=== PATIENT | female | born 1995 | race Caucasian/White ===

== ENCOUNTER 2019-05-26 08:11 | Day surgery (SDC) | payer OTHER ==
[2019-05-26] MEDS ORDERED: MIDAZOLAM 2 MG/2 ML VIAL IVP ONE (08:12)
[2019-05-26] MEDS ORDERED: fentaNYL 250 MCG/5 ML VIAL IVP ONE (08:12)
[2019-05-26 08:35] LABS: HCG UR QUAL NEGATIVE
[2019-05-26] MEDS ORDERED: LACTATED RINGERS 1,000 ML IV ONE (08:38)
[2019-05-26 09:56] VITALS: BP 97/80
== END 2019-05-26 08:12 | disposition home or self-care (01) ==
LOC: SDS 08:11
PROVIDERS: ATTEND Internal Medicine
PROC: 0DJD8ZZ Inspection of Lower Intestinal Tract, Via Natural or Artificial Opening Endoscopic (ICD-10-PCS; principal; 2019-05-26 09:30)
DX: Z12.11 Encounter for screening for malignant neoplasm of colon (principal); Z80.0 Family history of malignant neoplasm of digestive organs; K64.8 Other hemorrhoids
CPT/HCPCS: 45378; 81025; J3010; J7120

== ENCOUNTER 2020-02-28 10:52 | Outpatient (CLI) | payer OTHER ==
--- NOTE | 2020-02-28 11:56 | SLEEP CARE CONSULTATION ---
Information from patient questionnaire entered by Samaria Sweet. I have reviewed and concur with the information entered by Samaria Sweet. This document represents the service I personally performed and the decisions made by me, Dolores Cummins MD, [facility]. History of Present Illness Service Date and Time: 02/28/2020 1052 Reason for Visit: New patient Chief Complaint: reports: Insomnia, Excessive daytime sleepiness, Observed pauses in breathing, Frequent awakenings at night Usual bedtime: 9-10 PM Time it takes to fall asleep: 1-2 hours Snores at night: Yes Observed to quit breathing while asleep: Yes Sleeps alone due to snoring: No Number of times waking at night: 2 or more Reasons for waking at night: reports: Choking, Gasping for air Toss, Turn, or Twitch while sleeping: Yes Recalls having dreams: Yes Usually gets out of bed at: 5 am (weekdays) 7 am (weekends) Feels refreshed in the morning: No Morning headache: Yes Sleepy or fatigued during the day: Yes Ever fallen asleep while driving: Yes Takes day naps: No Dreams during day naps: Yes Prior sleep studies: Yes Year and Where: 2007 - [place], [place] Additional HPI information: The patient is here mainly because her says she struggle to breathe and quit breathing at night. She snores lightly. She complains of sleep onset insomnia of about 1 hour and waking up twice a night. Her bedtime is 9 pm and wakeup time is 5 am on weekdays, but 8 am on weekends. She reports having nightmares frequently. She feels tired and sleepy during the day. She has morning headaches that go away quickly. Her father has ADARSH and uses a CPAP. - Parasomnia Symptoms Ever been unable to move upon waking from sleep: Yes Ever felt weak in the knees when startled or emotional: Yes Bothered by creepy, crawly, restless sensations in legs: No Problems with memory or concentration: Yes Subjective Initial [place] Sleepiness Scale score: 18 (in 2019) Past Medical History Past Medical History: reports: Claustrophobia, Other (IBS, acne) Social History The patient's occupation is a Active . Patient is and lives in [place]. Have you smoked in the past 12 months: No Alcohol use: Yes Alcohol amount and frequency: 1-2 once a month or less Caffeine use: Yes Caffeine amount and frequency: 1 cup of coffee every morning Family History Family history of sleep disordered breathing: Yes Family Hx Sleep Apnea: Father: Snoring Allergies and Home Medications Drug allergies reviewed: Yes Home medication list reviewed: Yes Review of Systems Weight gain over past 5 years: 10 Cardiovascular: denies: high blood pressure, palpitations, chest pain, irregular heart rate or pulse, leg or foot swelling, have to sleep sitting up, other Respiratory: denies: shortness of breath, wheeze, sputum production, chronic cough, other Gastrointestinal: reports: nausea, diarrhea, abdominal pain, other (IBS) Urinary: reports: frequency Neurological: reports: headaches, head trauma, speech dysfunction Psychiatric: reports: claustrophobia Ear/Nose/Throat: reports: nasal congestion Endocrine: reports: too hot or cold Musculoskeletal: reports: muscle pain or cramping Immunologic: reports: sneezing, allergies to food or environment, other (mild seasonal allergies) Physical Exam Vital signs obtained and entered by: Deferred due to COVID-19 Height: 5 ft 2 in Weight: 137 lb Body Mass Index: 25.0 BMI Classification: Overweight Impression and Plan IMPRESSION: 1. Obstructive Sleep Apnea-Hypopnea Syndrome, as suggested by history of snoring, observed cessation of breath while asleep, frequent awakenings during the night, unrefreshed sleep, morning headache, and daytime hypersomnolence. Pathophysiology of sleep-disordered breathing was discussed. I recommend proceeding to polysomnography to confirm the diagnosis and to assess severity. If she has significant sleep disordered breathing, a manual CPAP titration study will also be performed to find the optimal treatment pressure. I informed the patient of what the sleep studies involve and after some discussion, she agreed to proceed. 2. Insomnia, due to delayed sleep phase syndrome. Based on her wakeup time of 8 am on the weekends, her bedtime is not until midnight. Therefore, going to bed at [address] too early. The solution is to maintain consistent wakeup time. This means she should not get up any later than 6 am on the weekends. Plan: 1. Schedule an in-laboratory polysomnography. 2. Maintain a regular wake up time and spend no more than 8 hours in bed at night. Avoid naps. 3. Avoid alcohol, sedative and muscle relaxant around bedtime. 4. Return in 1 to 2 weeks after the study to discuss results and initiate therapy Visit Type: In Office Time Spent with Patient (minutes): 15 Provider Statement: I spent 100% of the Face to Face Visit with the patient with greater than 50% spent counseling the patient and coordination of care.
== END 2020-02-28 10:53 | disposition home or self-care (01) ==
LOC: SC 10:52
PROVIDERS: ATTEND Internal Medicine Pulmonary Disease
DX: R06.83 Snoring (principal); R06.81 Apnea, not elsewhere classified; G47.8 Other sleep disorders; R51 Headache; R53.83 Other fatigue; G47.00 Insomnia, unspecified; G47.50 Parasomnia, unspecified; E66.3 Overweight; Z68.25 Body mass index [BMI] 25.0-25.9, adult
CPT/HCPCS: 99203; 99212

== ENCOUNTER 2020-03-15 19:35 | Outpatient (CLI) | payer OTHER | END 2020-03-15 19:36 | disposition home or self-care (01) | LOC: SC 19:35 | PROVIDERS: ATTEND Internal Medicine Pulmonary Disease | DX: R06.83 Snoring (principal); R06.81 Apnea, not elsewhere classified; G47.10 Hypersomnia, unspecified; R53.83 Other fatigue; G47.8 Other sleep disorders; G47.00 Insomnia, unspecified; R51 Headache; G47.50 Parasomnia, unspecified | CPT/HCPCS: 95810 ==

== ENCOUNTER 2021-08-10 12:01 | Emergency (ER) | payer OTHER ==
[2021-08-10 12:37] LABS: BILIRUBIN,URINE NEGATIVE (NEGATIVE); GLUCOSE, URINE (UA) NEGATIVE (NEGATIVE); KETONES,URINE (UA) NEGATIVE (NEGATIVE); LEUKOCYTE ESTERASE, URINE NEGATIVE (NEGATIVE); NITRITE,URINE NEGATIVE (NEGATIVE); OCCULT BLOOD,URINE LARGE (NEGATIVE); PH,URINE 6.5 PH (5.0-7.5); PROTEIN,URINE 30 mg/dL (NEGATIVE); UROBILINOGEN,URINE 0.2 (NORMAL) E.U./dL (NORMAL)
--- NOTE | 2021-08-10 12:40 | ED Physician Documentation ---
History of Present Illness - Stated complaint Stated Complaint: BLEEDING +PREG - Chief complaint Chief Complaint: Abd Pain - Additonal information Additional information: 25-year-old female presents the emergency department for evaluation of first trimester vaginal bleeding. LMP 06/23/2021. Pt had her first positive home test 07/27/2021 Patient reports that about 2 hours prior to arrival she began having vaginal bleeding that was more menstrual-like than spotting. Denies lateralizing or focal pain. No fevers or urinary symptoms. Does have past medical history of PCOS. She was advised to remove her Nexplanon implant about 1 year ago. This is a desired . Review of Systems Constitutional: denies: Fever, Chills Eyes: reports: Reviewed and negative Nose: reports: Reviewed and negative Throat: reports: Reviewed and negative Cardiac: reports: Reviewed and negative Respiratory: reports: Reviewed and negative GI: reports: Reviewed and negative : reports: LMP (06/23/2021), Vaginal bleeding, Now EGA Musculoskeletal: reports: Reviewed and negative PD PAST MEDICAL HISTORY - Past Medical History Cardiovascular: None Respiratory: None Endocrine/Autoimmune: None GI: None, Other : Kidney stones HEENT: None Psych: None Musculoskeletal: None Derm: None - Present Medications Home Medications: Ambulatory Orders Medication Instructions Recorded Confirmed Pnv No.95/Ferrous Fum/Folic AC 1 tab PO DAILY 08/10/21 08/10/21 [ Tablet] - Allergies Allergies/Adverse Reactions: Allergies Allergy/AdvReac Type Severity Reaction Status Date / Time diphenhydramine Allergy Severe Anaphylaxis Verified 08/10/21 12:08 [From Benadryl] PD ED PE NORMAL - General General: Alert and oriented X 3, No acute distress - HEENT HEENT: PERRL - Neck Neck: Supple, no meningeal sign - Cardiac Cardiac: RRR, No murmur - Respiratory Respiratory: Clear bilaterally - Abdomen Abdomen: Normal bowel sounds, Soft, Non tender, Non distended - Back Back: No CVA TTP, No spinal TTP - Derm Derm: Normal color, Warm and dry, No rash - Extremities Extremities: No deformity - Neuro Neuro: Alert and oriented X 3 Eye Opening: Spontaneous Motor: Obeys Commands Verbal: Oriented GCS Score: 15 Results - Vitals Vitals: Vital Signs - 24 hr 08/10/21 08/10/21 12:05 14:35 Temperature 36.7 C Heart Rate 102 H 81 Respiratory 16 16 Rate Blood Pressure 138/84 H 131/77 H O2 Saturation 100 100 Oxygen O2 Source Room air - Labs Labs: Laboratory Tests 08/10/21 08/10/21 08/10/21 12:12 13:04 13:04 WBC 5.8 RBC 4.44 Hgb 13.7 Hct 40.9 MCV 92.1 MCH 30.9 MCHC 33.5 RDW 11.4 L Plt Count 220 MPV 11.0 H Neut # (Auto) 4.1 Lymph # (Auto) 1.2 L [place] # (Auto) 0.4 Eos # (Auto) 0.1 Baso # (Auto) 0.0 Absolute Nucleated RBC 0.00 Nucleated RBC % 0.0 Sodium Potassium Chloride Carbon Dioxide Anion Gap BUN Creatinine Estimated GFR (MDRD) Glucose Calcium HCG, Quant Urine Color LT RED Urine Clarity BLOODY Urine pH 6.5 Ur Specific [place] <=1.005 Urine Protein 30 H Urine Glucose (UA) NEGATIVE Urine Ketones NEGATIVE Urine Occult Blood LARGE H Urine Nitrite NEGATIVE Urine Bilirubin NEGATIVE Urine Urobilinogen 0.2 (NORMAL) Ur Leukocyte Esterase NEGATIVE Urine RBC TNTC H Urine WBC 4-5 Ur Squamous Epith Cells FEW Squamous Urine Bacteria Rare Urine Casts 3-5 RBC Casts Ur Microscopic Review INDICATED Urine Culture Comments NOT INDICATED Blood Type O POSITIVE 08/10/21 08/10/21 13:04 13:04 WBC RBC Hgb Hct MCV MCH MCHC RDW Plt Count MPV Neut # (Auto) Lymph # (Auto) [place] # (Auto) Eos # (Auto) Baso # (Auto) Absolute Nucleated RBC Nucleated RBC % Sodium 140 Potassium 3.6 Chloride 105 Carbon Dioxide 25 Anion Gap 10.0 BUN 9 Creatinine 0.5 Estimated GFR (MDRD) 152 Glucose 88 Calcium 9.4 HCG, Quant 7.01 Urine Color Urine Clarity Urine pH Ur Specific [place] Urine Protein Urine Glucose (UA) Urine Ketones Urine Occult Blood Urine Nitrite Urine Bilirubin Urine Urobilinogen Ur Leukocyte Esterase Urine RBC Urine WBC Ur Squamous Epith Cells Urine Bacteria Urine Casts Ur Microscopic Review Urine Culture Comments Blood Type - Rads (name of study) OB Radiology: Final report received (no IUP; hypoechoic left adnexal lesion) PD MEDICAL DECISION MAKING - ED course Complexity details: reviewed results, re-evaluated patient, considered differential, d/w patient ED course: 25-year-old female G1, P0 presents the emergency department for vaginal bleeding that began this a.m. LMP 06/23/2021. She reports that she had a positive home test late last week as well as a positive test at the [facility]. When she began having vaginal bleeding she came to the ER. She is not having lower pelvic pain or any lateralizing pelvic pain. She does have a history of PCOS. Screening labs today show a normal hemoglobin without leukocytosis. She is Rh+. Her initial quant is 7.01. Given her last menstrual period in mid June I would expect a more robust quant. A pelvic ultrasound was completed and it does not show an IUP. However there is a complex hypoechoic mass measuring in greatest diameter of 2.8 cm on or about the left adnexa. I was notified by [facility] that they are concerned this could represent an ectopic . I then discussed the case with on-call OB Dr. Thompson. She feels it is extremely unlikely that this is an ectopic given such a low quant and no lower pelvic pain. She dutifully recommends the patient have a repeat hCG in 72 hours. Patient is to have explicit return precautions that include sudden severe lower pelvic pain, syncope racing heart or any other emergent concerns. I did discuss this case with the patient at length and she understands the emergent return precautions. She otherwise appears very well and is hemodynamically stable. Departure - Departure Disposition: 01 Home, Self Care Clinical Impression: Threatened miscarriage, Adnexal mass Condition: Stable Record reviewed to determine appropriate education?: Yes Comments: Mariaa silverman were seen in the emergency department today for vaginal bleeding in the first trimester of your . Your screening labs today show that your hCG, the hormone associated with is seven. The cutoff for normal is five. Although an hCG is seven does indicate that you are at this level it is very unlikely that we would ever see findings of an intrauterine . Nonetheless we did do a pelvic ultrasound to evaluate this possible . We did not find an intrauterine . We did find a hypoechoic complex appearing mass near your left adnexa. This may be a complex cyst associated with your history of PCOS. But because you are , we cannot definitively rule out an ectopic . This case was also discussed with our on-call OB Dr. Nadya Thompson It is critical that you return to this emergency department on Friday. At that time we will repeat your hormone levels. If they are rising we will need to do a repeat ultrasound to further evaluate the source of this mass. If at any point over the weekend you have sudden severe lower pelvic pain, fevers, racing heart or any fainting episodes then you are to return immediately to the ER for a second evaluation.
[2021-08-10 12:45] LABS: CLARITY,URINE BLOODY (CLEAR)
[2021-08-10 12:46] LABS: BACTERIA,URINE Rare /HPF (None Seen); CASTS, URINE 3-5 RBC Casts /LPF; RBC,URINE TNTC /HPF (0-5); SQUAMOUS EPITHELIAL CELL,UR FEW Squamous (<= Few)
[2021-08-10 13:16] LABS: BASOPHILS % (AUTO) 0.7 %; EOSINOPHILS # (AUTO) 0.1 10^3/uL (0.0-0.7); EOSINOPHILS % (AUTO) 1.4 %; HCT - HEMATOCRIT 40.9 % (37.0-47.0); HGB - HEMOGLOBIN 13.7 g/dL (12.0-16.0); LYMPHOCYTES # (AUTO) 1.2 10^3/uL (1.5-3.5); LYMPHOCYTES % (AUTO) 20.6 %; MEAN CORPUSCULAR HEMOGLOBIN 30.9 pg (27.0-31.0); MEAN CORPUSCULAR HGB CONC 33.5 g/dL (32.0-36.0); MEAN CORPUSCULAR VOLUME 92.1 fL (81.0-99.0); MONOCYTES # (AUTO) 0.4 10^3/uL (0.0-1.0); MONOCYTES % (AUTO) 6.1 %; NEUTROPHILS # (AUTO) 4.1 10^3/uL (1.5-6.6); PLT - PLATELET COUNT 220 10^3/uL (130-450); RED BLOOD COUNT 4.44 10^6/uL (4.20-5.40); RED CELL DISTRIBUTION WIDTH 11.4 % (12.0-15.0); WHITE BLOOD COUNT 5.8 x10^3/uL (4.8-10.8)
[2021-08-10 13:27] LABS: CALCIUM 9.4 mg/dL (8.5-10.3); CREATININE 0.5 mg/dL (0.4-1.0); POTASSIUM 3.6 mmol/L (3.5-5.0)
[2021-08-10 14:35] VITALS: BP 131/77
--- NOTE | 2021-08-10 15:19 | Ultrasound Report ---
PROCEDURE: OB First Trimester INDICATIONS: vaginal bleeding OUTSIDE/PRIOR DATING DATA: Last menstrual period (LMP): 06/23/2021. LMP-based estimated date of delivery (UNA): 03/30/2021. First dating scan (date and location): 08/10/2021. Estimated date of delivery (UNA) from first dating scan: Not applicable. TECHNIQUE: Real-time scanning was performed of the fetus and maternal pelvic organs, with image documentation. COMPARISON: None FINDINGS: There is a complex focus of echogenicity in the left adnexa measuring 2.8 x 2.1 x 2.3 cm. There is n o internal vascularity. It appears contiguous with the left ovary. No free fluid. Right ovary demonstrates a focus of heterogenous echogenicity measuring 1.1 x 0.8 x 1.0 cm. IMPRESSION: Heterogeneous echogenicity within the left adnexal region, in direct approximation to the left ovary highly suspicious for ectopic , until proven otherwise. No intrauterine . No free f luid in the pelvis. Recommend correlation to beta hCG levels and clinical and imaging follow-up. The above findings were discussed with DAVE Barreto on 08/10/2021 at 3:14 PM Reviewed by: Tiffany Chauhan MD on 08/10/2021 3:17 PM PST Approved by: Tiffany Chauhan MD on 08/10/2021 3:17 PM PST Station ID: [id number]
--- NOTE | 2021-08-10 19:30 | PROVIDER PROGRESS NOTE ---
Subjective - Prog Note Date Prog Note Date: 08/10/21 Prog Note Time: 15:00 - Subjective Subjective: I had received a request from DAVE Cochran, to review records for this patient. Patient is a 25 yo female who reports having had a positive urine test at the [facility] who presents today with vaginal bleeding with flow volume similar to menses. Denied pelvic pain. LMP was 06/23/21 giving an UNA of 03/30/22 and an ega of 6w6d. Quantitative HCG was 7mIU/ml, with the high end of normal range being 5mIU/ml. This is below the range that would be detected by a urine HCG test (typically 20 mIU/ml). Pelvic us was performed and showed a mass adjacent to the left ovary measuring approximately 2.8x2.1x2.3 cm. No internal vascularity and no free fluid in the pelvis. Recommendation was to clinically correlate with HCG. I reviewed the images directly myself. Typically, an HCG was 7 mIU/mL would not be visible via us. This is likely a failing chemical with presence of a corpus luteum cyst. A single HCG measure is difficult to interpret as trends would indicated a developing vs failing vs ectopic . However, an HCG of 7 mIU/ml could be considered normal among some women, particularly those with prior . A conservative/cautious approach would be to administer methotrexate as a precautionary measure but this is a highly desired and patient has no other symptoms other than menstrual-like vaginal bleeding. Presentation and HCG levels are most suggestive of onset of menses after failed chemical . (Prior positive UCG suggests corresponding HCG was 20 or greater and present level of 7 mIU/ml indicates a drop in HCG) To be conservative, I recommend repeat of HCG in 3 days. Patient can follow-up in clinic and warning signs should be reviewed. Objective - Vital Signs/Intake & Output Vital Signs: Vital Signs x48h Temp Pulse Resp BP Pulse Ox 08/10/21 14:35 81 16 131/77 H 100 08/10/21 12:05 98.1 F 102 H 16 138/84 H 100 - Lab Results Fish Bones: 08/10/21 13:04 08/10/21 13:04 Other Labs: Lab Results x24hrs 12/03/21 12/03/21 12/03/21 Range/Units 13:04 13:04 13:04 WBC 5.8 (4.8-10.8) x10^3/uL RBC 4.44 (4.20-5.40) 10^6/uL Hgb 13.7 (12.0-16.0) g/dL Hct 40.9 (37.0-47.0) % MCV 92.1 (81.0-99.0) fL MCH 30.9 (27.0-31.0) pg MCHC 33.5 (32.0-36.0) g/dL RDW 11.4 L (12.0-15.0) % Plt Count 220 (130-450) 10^3/uL MPV 11.0 H (7.9-10.8) fL Neut # (Auto) 4.1 (1.5-6.6) 10^3/uL Lymph # (Auto) 1.2 L (1.5-3.5) 10^3/uL [place] # (Auto) 0.4 (0.0-1.0) 10^3/uL Eos # (Auto) 0.1 (0.0-0.7) 10^3/uL Baso # (Auto) 0.0 (0.0-0.1) 10^3/uL Absolute Nucleated RBC 0.00 x10^3/uL Nucleated RBC % 0.0 /100WBC Sodium 140 (135-145) mmol/L Potassium 3.6 (3.5-5.0) mmol/L Chloride 105 (101-111) mmol/L Carbon Dioxide 25 (21-32) mmol/L Anion Gap 10.0 (6-13) BUN 9 (6-20) mg/dL Creatinine 0.5 (0.4-1.0) mg/dL Estimated GFR (MDRD) 152 (>89) Glucose 88 (70-100) mg/dL Calcium 9.4 (8.5-10.3) mg/dL HCG, Quant 7.01 mIU/mL Urine Color Urine Clarity (CLEAR) Urine pH (5.0-7.5) PH Ur Specific [place] (1.002-1.030) Urine Protein (NEGATIVE) mg/dL Urine Glucose (UA) (NEGATIVE) mg/dL Urine Ketones (NEGATIVE) mg/dL Urine Occult Blood (NEGATIVE) Urine Nitrite (NEGATIVE) Urine Bilirubin (NEGATIVE) Urine Urobilinogen (NORMAL) E.U./dL Ur Leukocyte Esterase (NEGATIVE) Urine RBC (0-5) /HPF Urine WBC (0-5) /HPF Ur Squamous Epith Cells (<= Few) Urine Bacteria (None Seen) /HPF Urine Casts /LPF Ur Microscopic Review Urine Culture Comments Blood Type 08/10/21 08/10/21 Range/Units 13:04 12:12 WBC (4.8-10.8) x10^3/uL RBC (4.20-5.40) 10^6/uL Hgb (12.0-16.0) g/dL Hct (37.0-47.0) % MCV (81.0-99.0) fL MCH (27.0-31.0) pg MCHC (32.0-36.0) g/dL RDW (12.0-15.0) % Plt Count (130-450) 10^3/uL MPV (7.9-10.8) fL Neut # (Auto) (1.5-6.6) 10^3/uL Lymph # (Auto) (1.5-3.5) 10^3/uL [place] # (Auto) (0.0-1.0) 10^3/uL Eos # (Auto) (0.0-0.7) 10^3/uL Baso # (Auto) (0.0-0.1) 10^3/uL Absolute Nucleated RBC x10^3/uL Nucleated RBC % /100WBC Sodium (135-145) mmol/L Potassium (3.5-5.0) mmol/L Chloride (101-111) mmol/L Carbon Dioxide (21-32) mmol/L Anion Gap (6-13) BUN (6-20) mg/dL Creatinine (0.4-1.0) mg/dL Estimated GFR (MDRD) (>89) Glucose (70-100) mg/dL Calcium (8.5-10.3) mg/dL HCG, Quant mIU/mL Urine Color LT RED Urine Clarity BLOODY (CLEAR) Urine pH 6.5 (5.0-7.5) PH Ur Specific [place] <=1.005 (1.002-1.030) Urine Protein 30 H (NEGATIVE) mg/dL Urine Glucose (UA) NEGATIVE (NEGATIVE) mg/dL Urine Ketones NEGATIVE (NEGATIVE) mg/dL Urine Occult Blood LARGE H (NEGATIVE) Urine Nitrite NEGATIVE (NEGATIVE) Urine Bilirubin NEGATIVE (NEGATIVE) Urine Urobilinogen 0.2 (NORMAL) (NORMAL) E.U./dL Ur Leukocyte Esterase NEGATIVE (NEGATIVE) Urine RBC TNTC H (0-5) /HPF Urine WBC 4-5 (0-5) /HPF Ur Squamous Epith Cells FEW Squamous (<= Few) Urine Bacteria Rare (None Seen) /HPF Urine Casts 3-5 RBC Casts /LPF Ur Microscopic Review INDICATED Urine Culture Comments NOT INDICATED Blood Type O POSITIVE
== END 2021-08-10 15:50 | disposition home or self-care (01) ==
LOC: ED 12:01
DX: O20.0 Threatened abortion (principal); Z3A.00 Weeks of gestation of pregnancy not specified; Z3A.01 Less than 8 weeks gestation of pregnancy
CPT/HCPCS: 36415; 80048; 81001; 81003; 84702; 85025; 86900; 86901; 87086; 99284

== ENCOUNTER 2021-08-13 11:09 | Emergency (ER) | payer OTHER ==
--- NOTE | 2021-08-13 11:45 | ED Physician Documentation ---
History of Present Illness - Stated complaint Stated Complaint: FOLLOW UP - Chief complaint Chief Complaint: General - Additonal information Additional information: 25-year-old female return to the emergency department for evaluation of her l chad failed . Seen here 3 days ago. She had a hCG is 7 but in the weeks previous had had positive home test. When initially saw 3 days ago she had developed vaginal bleeding and cramping. Pelvic ultrasound did not show an IUP however there was a mass near the adnexa and ovary. Radiology was concerned that this was an ectopic. In conversation with Dr. Thompson who personally reviewed the images she felt it was unlikely an ectopic but this likely represented a corpus luteal cyst. Patient was given explicit return precautions. Over the last 3 days she reports that the bleeding has now stopped. She has had no cramping localizing or lower abdominal pain. No fevers. Review of Systems Constitutional: reports: Reviewed and negative Nose: reports: Reviewed and negative Throat: reports: Reviewed and negative Cardiac: reports: Reviewed and negative Respiratory: reports: Reviewed and negative GI: denies: Abdominal Pain : reports: Vaginal bleeding (Now stopped) PD PAST MEDICAL HISTORY - Past Medical History Past Medical History: Yes Cardiovascular: None Respiratory: None Endocrine/Autoimmune: None GI: None, Other : Kidney stones HEENT: None Psych: None Musculoskeletal: None Derm: None - Present Medications Home Medications: Ambulatory Orders Medication Instructions Recorded Confirmed Pnv No.95/Ferrous Fum/Folic AC 1 tab PO DAILY 08/10/21 08/10/21 [ Tablet] - Allergies Allergies/Adverse Reactions: Allergies Allergy/AdvReac Type Severity Reaction Status Date / Time diphenhydramine Allergy Severe Anaphylaxis Verified 08/13/21 11:16 [From Benadryl] - Social History Does the pt smoke?: No Smoking Status: Never smoker PD ED PE NORMAL - General General: Alert and oriented X 3, No acute distress - HEENT HEENT: PERRL - Neck Neck: Supple, no meningeal sign - Respiratory Respiratory: Clear bilaterally - Abdomen Abdomen: Normal bowel sounds, Soft, Non tender, Non distended - Back Back: No CVA TTP, No spinal TTP - Derm Derm: Normal color, No rash Results - Vitals Vitals: Vital Signs - 24 hr 08/13/21 11:15 Temperature 36.2 C L Heart Rate 74 Respiratory 16 Rate Blood Pressure 138/75 H O2 Saturation 99 Oxygen O2 Source Room air - Labs Labs: Laboratory Tests 08/13/21 12:06 HCG, Quant 2.52 PD MEDICAL DECISION MAKING - ED course Complexity details: reviewed old records, reviewed results, re-evaluated patient, considered differential, d/w patient ED course: 25 oh female presents emergency department for evaluation of her . Seen 3 days ago. Had an hCG of 7 though in the weeks previous she had a positive home test. Pelvic ultrasound revealed a cystic lesion near the adnexa and ovary suspicious for an ectopic. Dr. Thompson felt that this was likely a corpus luteal cyst in the setting of a failed . Patient returns today with no further vaginal bleeding no lower abdominal pain or lateralizing symptoms. Her hCG today is 2.5. This is consistent with a failed /miscarriage. Given lack of lateralizing findings or any pain the mass seen on ultrasound 3 days ago likely represents a corpus luteal cyst. Patient advised to continue to follow-up with OB. Recommended waiting 60 days before attempting to get again. Departure - Departure Disposition: 01 Home, Self Care Clinical Impression: Miscarriage Instructions: ED Miscarriage Completed Comments: Mariaa your hCG level today is 2.5. Given that the hormone level has continued to drop over the last 3 days and you have now stopped bleeding I suspect that this is a completed miscarriage. The mass seen on your adnexa/ovary 3 days ago was most likely a corpus luteal cyst. Please discuss this ED visit with your OB provider. We typically recommend waiting approximately 60 days between miscarriages before attempting to get again. If at any point you have severe vaginal bleeding, fevers lower abdominal pain please return immediately to the ER for second evaluation.
[2021-08-13 12:42] VITALS: BP 128/72
== END 2021-08-13 12:41 | disposition home or self-care (01) ==
LOC: ED 11:09
DX: O03.9 Complete or unspecified spontaneous abortion without complication (principal)
CPT/HCPCS: 36415; 84702; 99283

== ENCOUNTER 2022-02-04 10:46 | Emergency (ER) | payer OTHER ==
[2022-02-04 11:16] LABS: BILIRUBIN,URINE NEGATIVE (NEGATIVE); GLUCOSE, URINE (UA) NEGATIVE (NEGATIVE); KETONES,URINE (UA) NEGATIVE (NEGATIVE); LEUKOCYTE ESTERASE, URINE NEGATIVE (NEGATIVE); NITRITE,URINE NEGATIVE (NEGATIVE); OCCULT BLOOD,URINE NEGATIVE (NEGATIVE); PROTEIN,URINE NEGATIVE (NEGATIVE); UROBILINOGEN,URINE 0.2 (NORMAL) E.U./dL (NORMAL)
[2022-02-04 11:31] LABS: CLARITY,URINE CLEAR (CLEAR)
--- NOTE | 2022-02-04 11:31 | ED Physician Documentation ---
History of Present Illness - Stated complaint Stated Complaint: CRAMPING,DISCHARGE - Chief complaint Chief Complaint: Abd Pain - Additonal information Additional information: 26-year-old female presents emergency department for evaluation of what she believes is miscarriage in the first trimester . A1. LMP 12/14/2021. She had a home test last week that was positive. She has not yet established with OB. Yesterday evening she began having very mild cramping but this morning in the shower passed what she believes to be tissue and had light pink discharge. Denies any fever or localizing abdominal pain. Patient is Rh+ Review of Systems Constitutional: reports: Reviewed and negative Nose: reports: Reviewed and negative Throat: reports: Reviewed and negative Cardiac: reports: Reviewed and negative Respiratory: reports: Reviewed and negative : reports: Vaginal bleeding, Now EGA Skin: reports: Reviewed and negative Musculoskeletal: reports: Reviewed and negative PD PAST MEDICAL HISTORY - Past Medical History Cardiovascular: None Respiratory: None Endocrine/Autoimmune: None GI: None, Other : Kidney stones HEENT: None Psych: None Musculoskeletal: None Derm: None - Present Medications Home Medications: Ambulatory Orders Medication Instructions Recorded Confirmed Pnv No.95/Ferrous Fum/Folic AC 1 tab PO DAILY 08/10/21 08/10/21 [ Tablet] - Allergies Allergies/Adverse Reactions: Allergies Allergy/AdvReac Type Severity Reaction Status Date / Time diphenhydramine Allergy Severe Anaphylaxis Verified 02/04/22 11:07 [From Benadryl] - Social History Does the pt smoke?: No Smoking Status: Never smoker PD ED PE NORMAL - General General: Alert and oriented X 3, No acute distress - HEENT HEENT: PERRL - Cardiac Cardiac: RRR, No murmur - Respiratory Respiratory: No respiratory distress - Abdomen Abdomen: Normal bowel sounds, Soft - Back Back: No CVA TTP, No spinal TTP - Derm Derm: Normal color, Warm and dry, No rash - Extremities Extremities: No deformity, No tenderness to palpate, Normal ROM s pain - Neuro Neuro: Alert and oriented X 3, strike planning applications 2-12 intact Eye Opening: Spontaneous Motor: Obeys Commands Verbal: Oriented GCS Score: 15 - Psych Psych: Normal mood Results - Vitals Vitals: Vital Signs - 24 hr 02/04/22 02/04/22 11:00 12:21 Temperature 37 C Heart Rate 101 H 80 Respiratory 18 15 Rate Blood Pressure 135/86 H 115/73 O2 Saturation 100 100 Oxygen O2 Source Room air - Labs Labs: Laboratory Tests 02/04/22 02/04/22 02/04/22 11:10 11:19 11:23 WBC 5.3 RBC 4.44 Hgb 13.8 Hct 40.7 MCV 91.7 MCH 31.1 H MCHC 33.9 RDW 11.6 L Plt Count 226 MPV 11.4 H Neut # (Auto) 3.5 Lymph # (Auto) 1.2 L [place] # (Auto) 0.4 Eos # (Auto) 0.1 Baso # (Auto) 0.0 Absolute Nucleated RBC 0.00 Nucleated RBC % 0.0 Sodium Potassium Chloride Carbon Dioxide Anion Gap BUN Creatinine Estimated GFR (MDRD) Glucose Calcium Total Bilirubin AST ALT Alkaline Phosphatase Total Protein Albumin Globulin Albumin/Globulin Ratio Lipase HCG, Quant 84072.00 Urine Color LIGHT YELLOW Urine Clarity CLEAR Urine pH 7.0 Ur Specific [place] <=1.005 Urine Protein NEGATIVE Urine Glucose (UA) NEGATIVE Urine Ketones NEGATIVE Urine Occult Blood NEGATIVE Urine Nitrite NEGATIVE Urine Bilirubin NEGATIVE Urine Urobilinogen 0.2 (NORMAL) Ur Leukocyte Esterase NEGATIVE Ur Microscopic Review NOT INDICATED Urine Culture Comments NOT INDICATED Urine HCG, Qual Cancelled 02/04/22 11:23 WBC RBC Hgb Hct MCV MCH MCHC RDW Plt Count MPV Neut # (Auto) Lymph # (Auto) [place] # (Auto) Eos # (Auto) Baso # (Auto) Absolute Nucleated RBC Nucleated RBC % Sodium 137 Potassium 3.5 Chloride 104 Carbon Dioxide 22 Anion Gap 11.0 BUN 10 Creatinine 0.6 Estimated GFR (MDRD) 122 Glucose 97 Calcium 9.4 Total Bilirubin 0.9 AST 21 ALT 30 Alkaline Phosphatase 46 Total Protein 7.5 Albumin 4.6 Globulin 2.9 Albumin/Globulin Ratio 1.6 Lipase 34 HCG, Quant Urine Color Urine Clarity Urine pH Ur Specific [place] Urine Protein Urine Glucose (UA) Urine Ketones Urine Occult Blood Urine Nitrite Urine Bilirubin Urine Urobilinogen Ur Leukocyte Esterase Ur Microscopic Review Urine Culture Comments Urine HCG, Qual - Rads (name of study) OB US Radiology: Final report received (live IUP just over 6 weeks. FHR 154; no complicating features) PD MEDICAL DECISION MAKING - ED course Complexity details: reviewed results, re-evaluated patient, considered differential, d/w patient, d/w family ED course: Well-appearing 26-year-old female presents emergency department for evaluation of light vaginal spotting and passage of what she describes as tissue this morning. LMP 12/14/2021. A1. Rh+. No abdominal tenderness was elicited on exam. Patient's quant is healthy and ov er 47,000. OB ultrasound reveals live IUP at just over 6 weeks with heart rate of 154. Findings were discussed with the patient. Advise close follow-up with OB may benefit from repeat hCG this week. Reassuringly there are no complicating findings or features to suggest ectopic . Emergent return precautions otherwise discussed Departure - Departure Disposition: 01 Home, Self Care Clinical Impression: Threatened in first trimester Condition: Stable Record reviewed to determine appropriate education?: Yes Comments: Mariaa silverman were seen today in the emergency department for concerns of possible miscarriage in the first trimester of your . The OB ultrasound today shows that you have a just over 6 weeks with a good heart rate of 154. The rest of your labs were on concerning. You do not have any findings of infection in your urine. It is possible that the spotting you had this morning is what is called implantation spotting which can be quite normal. I would like you to discuss this ED visit with your OB. They may elect to repeat your hormone levels in later this week. Today they were just over 47,000. If at any point you develop fevers, have severe vaginal bleeding or bleed more than 1 pad or tampon an hour for or for 4 more hours, have uncontrolled vomiting then please return to the ER for second evaluation.
[2022-02-04 12:10] LABS: BASOPHILS % (AUTO) 0.8 %; EOSINOPHILS # (AUTO) 0.1 10^3/uL (0.0-0.7); EOSINOPHILS % (AUTO) 2.5 %; HCT - HEMATOCRIT 40.7 % (37.0-47.0); HGB - HEMOGLOBIN 13.8 g/dL (12.0-16.0); LYMPHOCYTES # (AUTO) 1.2 10^3/uL (1.5-3.5); LYMPHOCYTES % (AUTO) 23.1 %; MEAN CORPUSCULAR HEMOGLOBIN 31.1 pg (27.0-31.0); MEAN CORPUSCULAR HGB CONC 33.9 g/dL (32.0-36.0); MEAN CORPUSCULAR VOLUME 91.7 fL (81.0-99.0); MEAN PLATELET VOLUME 11.4 fL (7.9-10.8); MONOCYTES # (AUTO) 0.4 10^3/uL (0.0-1.0); MONOCYTES % (AUTO) 7.4 %; NEUTROPHILS # (AUTO) 3.5 10^3/uL (1.5-6.6); PLT - PLATELET COUNT 226 10^3/uL (130-450); RED BLOOD COUNT 4.44 10^6/uL (4.20-5.40); RED CELL DISTRIBUTION WIDTH 11.6 % (12.0-15.0); WHITE BLOOD COUNT 5.3 x10^3/uL (4.8-10.8)
[2022-02-04 12:22] VITALS: BP 115/73
[2022-02-04 12:26] LABS: ALBUMIN 4.6 g/dL (3.2-5.5); ALBUMIN/GLOBULIN RATIO 1.6 (1.0-2.2); BILIRUBIN,TOTAL 0.9 mg/dL (0.2-1.0); CALCIUM 9.4 mg/dL (8.5-10.3); CREATININE 0.6 mg/dL (0.4-1.0); POTASSIUM 3.5 mmol/L (3.5-5.0); TOTAL PROTEIN 7.5 g/dL (6.7-8.2)
--- NOTE | 2022-02-04 12:49 | Ultrasound Report ---
PROCEDURE: OB First Trimester INDICATIONS: passing tissue 1st trimester preg OUTSIDE/PRIOR DATING DATA: Last menstrual period (LMP): 12/14/2021. LMP-based estimated date of delivery (UNA): 09/20/2022. First dating scan (date and location): 02/04/2022. Estimated date of delivery (UNA) from first dating scan: 09/25/2022. The below data below was generated using the ultrasound UNA of 09/25/2022 TECHNIQUE: Real-time scanning was performed of the fetus and maternal pelvic organs, with image documentation. COMPARISON: None FINDINGS: Embryo: There is an intrauterine gestational sac seen, with a pole present, which measures 1.7 cm, which corresponds to an estimated gestational age of 6 weeks 4 days. cardiac activity is s een, with a measured heart rate of 153 bpm. No significant perigestational/subchorionic hemorrhage can be seen. Measurement variability in dating: +/- 4 weeks by LMP, +/- 7 days by mean sac diameter (use before 6 weeks gestation if crown-rump length not able to be measured), +/- 5 days by crown-rump length (6-12 weeks gestation). Maternal organs: Ovaries are within normal limits, with a right ovarian corpus luteal cyst. IMPRESSION: Single live intrauterine . No significant discrepancy is found between the estimated gestational age based upon these images and the estimated gestational age based upon the given date of the last menstrual period. Note: Concordant preliminary findings given by the state fire marshal upon the completion of the examination to nurse Sr at 12:20 PM on 02/04/2022. Reviewed by: Clyde Love MD on 02/04/2022 11:47 AM SOFIA Approved by: Clyde Love MD on 02/04/2022 11:47 AM SOFIA Station ID: [id number]
== END 2022-02-04 12:54 | disposition home or self-care (01) ==
LOC: ED 10:46
DX: O20.0 Threatened abortion (principal); Z3A.01 Less than 8 weeks gestation of pregnancy
CPT/HCPCS: 36415; 80053; 81001; 81003; 81025; 83690; 84702; 85025; 87086; 99282; 99284